=== PATIENT | female | born 1960 | race Caucasian/White ===

== ENCOUNTER 2017-07-13 09:45 | Emergency (ER) | payer OTHER ==
[~2017-07-13] VITALS: Ht 167.6 cm; Wt 77.1 kg
[~2017-07-13 09:45] MED LIST: ALBU18HF IH; CLOP75TA57 PO; METH-37 PO; TRAM-48 PO
[2017-07-13] MEDS ORDERED: IV NORMAL SALINE 1,000ML 1,000 ML IV ONE (10:30)
[2017-07-13] MEDS ORDERED: predniSONE 10 MG TABLET PO ONE (10:45)
[2017-07-13] MEDS ORDERED: ONDANSETRON PF 4 MG/2 ML VIAL. IV ONE (10:45)
[2017-07-13] MEDS ORDERED: IPRATRPIUM/ALBUTEROL 0.5/2.5MG 3 ML NEBU. NEB ONE (10:45)
[2017-07-13 10:47] LABS: BASO % 1 % (0-3); EOS # 0.1 x10^3/uL (0.0-0.7); EOS % 2 % (0-3); HEMATOCRIT 40.5 % (36.0-47.0); HEMOGLOBIN 13.7 g/dL (12.0-15.5); LYMPH # 1.3 x10^3/uL (1.0-4.8); LYMPH % 36 % (24-48); MEAN CORPUSCULAR HEMOGLOBIN 31 pg (25-35); MEAN CORPUSCULAR HGB CONC 34 g/dL (31-37); MEAN CORPUSCULAR VOLUME 92 fL (79-100); MONO # 0.3 x10^3/uL (0.0-1.1); MONO % 8 % (0-9); NEUT % 53 % (31-73); PLATELET COUNT 138 x10^3/uL (140-400); RED BLOOD COUNT 4.41 x10^6/uL (3.50-5.40); RED CELL DISTRIBUTION WIDTH 14.2 % (11.5-14.5); WHITE BLOOD COUNT 3.7 x10^3/uL (4.0-11.0)
--- NOTE | 2017-07-13 10:54 | RAD ---
Chest, 2 views, 07/13/2017: History: Cough Comparison is made to a study from 10/10/2014. The heart size and pulmonary vascularity are normal. No pulmonary infiltrate is seen. There is no evidence of pleural fluid. IMPRESSION: No acute cardiopulmonary abnormality is detected.
[2017-07-13 11:15] LABS: ALBUMIN 3.4 g/dL (3.4-5.0); CALCIUM 8.4 mg/dL (8.5-10.1); GFR 57.6; POTASSIUM 3.8 mmol/L (3.5-5.1); TOTAL BILIRUBIN 0.3 mg/dL (0.2-1.0); TOTAL PROTEIN 6.8 g/dL (6.4-8.2)
[2017-07-13] MEDS ORDERED: PRED50TA PO (12:20)
[2017-07-13] MEDS ORDERED: BENZ100C PO (12:20)
[2017-07-13] MEDS ORDERED: AZIT250T6 PO (12:20)
[2017-07-13] MEDS ORDERED: ALBU8.5H8 INH (12:20)
--- NOTE | 2017-07-13 12:20 | PHYS DOC ---
Past History Past Medical History: Asthma, [place] Past Surgical History: No Surgical History Alcohol Use: None Drug Use: None Adult General Chief Complaint Chief Complaint: SHORTNESS OF BREATH HPI HPI Patient is a 57 year old female who presents with cough and shortness of breath. Patient reports 10 day history of productive cough associated with shortness of breath at rest and with exertion. Denies fevers or chills, nasal congestion/rhinorrhea, chest pain, vomiting, diarrhea. History of asthma, current daily smoker. Review of Systems Review of Systems Constitutional: Denies fever or chills Eyes: Denies change in visual acuity HENT: Denies nasal congestion or sore throat Respiratory: Reports cough and shortness of breath Cardiovascular: Denies chest pain or edema GI: Denies abdominal pain, nausea, vomiting, bloody stools or diarrhea : Denies dysuria or hematuria Musculoskeletal: Denies back pain or joint pain Integument: Denies rash or skin lesions Neurologic: Denies headache, focal weakness or sensory changes All other systems were reviewed and found to be within normal limits, except as documented in this note. Current Medications Current Medications Current Medications Medications (Trade) Dose Ordered Sig/Jose De Jesus Start Time Stop Time Status Last Admin Dose Admin Albuterol/ Ipratropium (Duoneb) 3 ml 1X ONCE 07/13/17 10:45 07/13/17 10:46 DC 07/13/17 11:00 3 ML Ondansetron HCl (Zofran) 4 mg 1X ONCE 07/13/17 10:45 07/13/17 10:46 DC 07/13/17 10:59 4 MG Prednisone (Prednisone) 50 mg 1X ONCE 07/13/17 10:45 07/13/17 10:46 DC 07/13/17 11:00 50 MG Sodium Chloride 1,000 ml @ 1,000 mls/hr 1X ONCE 07/13/17 10:30 07/13/17 11:29 DC 07/13/17 10:59 1,000 MLS/HR Allergies Allergies Allergies Coded Allergies Type Severity Reaction Last Updated Verified No Known Drug Allergies 10/10/14 No Physical Exam Physical Exam Constitutional: Well developed, well nourished, no acute distress, non-toxic appearance. HENT: Normocephalic, atraumatic, bilateral external ears normal, oropharynx moist, no tonsillar enlargement or exudate nose normal. Eyes: conjunctiva normal, no discharge. Neck: supple, no stridor. No meningismus Cardiovascular: RRR, no murmurs, no edema. Lungs & Thorax: LCTAB, frequent dry cough, no wheezing, no respiratory distress. Abdomen: soft, nontender, nondistended. Skin: Warm, dry, no erythema, no rash. Back: No tenderness. Extremities: No tenderness, no edema. No calf tenderness or swelling Neurologic: Alert and oriented X 3, no focal deficits noted. Psychologic: Affect normal, judgement normal, mood normal. Current Patient Data Vital Signs Vital Signs Date Time Temp Pulse Resp B/P (MAP) Pulse Ox O2 Delivery O2 Flow Rate FiO2 07/13/17 10:08 98.4 66 22 98 Room Air Lab Results Laboratory Tests Test 07/13/17 10:35 White Blood Count 3.7 x10^3/uL (4.0-11.0) L Red Blood Count 4.41 x10^6/uL (3.50-5.40) Hemoglobin 13.7 g/dL (12.0-15.5) Hematocrit 40.5 % (36.0-47.0) Mean Corpuscular Volume 92 fL (79-100) Mean Corpuscular Hemoglobin 31 pg (25-35) Mean Corpuscular Hemoglobin Concent 34 g/dL (31-37) Red Cell Distribution Width 14.2 % (11.5-14.5) Platelet Count 138 x10^3/uL (140-400) L Neutrophils (%) (Auto) 53 % (31-73) Lymphocytes (%) (Auto) 36 % (24-48) Monocytes (%) (Auto) 8 % (0-9) Eosinophils (%) (Auto) 2 % (0-3) Basophils (%) (Auto) 1 % (0-3) Neutrophils # (Auto) 2.0 x10^3uL (1.8-7.7) Lymphocytes # (Auto) 1.3 x10^3/uL (1.0-4.8) Monocytes # (Auto) 0.3 x10^3/uL (0.0-1.1) Eosinophils # (Auto) 0.1 x10^3/uL (0.0-0.7) Basophils # (Auto) 0.0 x10^3/uL (0.0-0.2) Sodium Level 139 mmol/L (136-145) Potassium Level 3.8 mmol/L (3.5-5.1) Chloride Level 104 mmol/L (98-107) Carbon Dioxide Level 25 mmol/L (21-32) Anion Gap 10 (6-14) Blood Urea Nitrogen 15 mg/dL (7-20) Creatinine 1.0 mg/dL (0.6-1.0) Estimated GFR (Cockcroft-Gault) 57.6 BUN/Creatinine Ratio 15 (6-20) Glucose Level 90 mg/dL (70-99) Calcium Level 8.4 mg/dL (8.5-10.1) L Total Bilirubin 0.3 mg/dL (0.2-1.0) Aspartate Amino Transferase (AST) 20 U/L (15-37) Alanine Aminotransferase (ALT) 31 U/L (14-59) Alkaline Phosphatase 73 U/L (46-116) Troponin I Quantitative < 0.017 ng/mL (0-0.055) JQ-Dhn-U-Type Natriuretic Peptide 126 pg/mL (0-124) H Total Protein 6.8 g/dL (6.4-8.2) Albumin 3.4 g/dL (3.4-5.0) Albumin/Globulin Ratio 1.0 (1.0-1.7) EKG EKG Interpreted by me: Normal sinus rhythm rate 60, no acute ST or T wave changes, normal intervals, no ectopy[] Radiology/Procedures Radiology/Procedures PROCEDURE: CHEST PA & LATERAL Chest, 2 views, 07/13/2017: History: Cough Comparison is made to a study from 10/10/2014. The heart size and pulmonary vascularity are normal. No pulmonary infiltrate is seen. There is no evidence of pleural fluid. IMPRESSION: No acute cardiopulmonary abnormality is detected. DICTATED AND SIGNED BY: BALDO GHOSH MD DATE: 07/13/17 9148 [] Course & Med Decision Making Course & Med Decision Making Pertinent Labs and Imaging studies reviewed. (See chart for details) The patient presents with respiratory symptoms. Afebrile, normal oxygen saturation, stable vitals. Gave nebulized breathing treatment, prednisone. Obtained labs, EKG, chest x-ray. No infiltrate on chest x-ray, vitals stable. She felt better after treatment. Recommend supportive care with rest, hydration , Tylenol or ibuprofen for pain or fever, refill of pro-air inhaler to use when necessary for cough or wheezing, prednisone burst, azithromycin for acute bronchitis. Follow-up with primary care physician in 2-3 days if not improving. Return to the emergency department for high fever, severe pain, uncontrolled vomiting, severe shortness of breath, any otherwise worsening condition. [] Dragon Disclaimer Dragon Disclaimer This electronic medical record was generated, in whole or in part, using a voice recognition dictation system. Departure Departure: Impression: Primary Impression: Acute bronchitis Disposition: 01 HOME, SELF-CARE Condition: STABLE Referrals: DELMY PULIDO MD (PCP) Patient Instructions: Acute Bronchitis, [id number] Additional Instructions: You were seen in the emergency department today for cough. Your x-ray was negative for pneumonia. Your vitals were stable. Please rest, drink fluids to stay hydrated, take Tylenol or ibuprofen for pain or fever, use albuterol inhaler, take steroids and antibiotic. Follow-up with a primary care physician in 2-3 days if not improving. Return to the emergency department for high fever , severe shortness of breath or chest pain, uncontrolled vomiting, any otherwise worsening condition. Scripts Azithromycin (AZITHROMYCIN TABLET) 250 Mg Tablet 1 PKG PO UD, #6 TAB Prov: MANUELA PICKETT MD 07/13/17 Prednisone (PREDNISONE) 50 Mg Tablet 1 TAB PO DAILY, #5 TAB Prov: MANUELA PICKETT MD 07/13/17 Benzonatate (TESSALON PERLE) 100 Mg Capsule 1 CAP PO TID, #21 CAP Prov: MANUELA PICKETT MD 07/13/17 Albuterol Sulfate (PROAIR HFA INHALER) 8.5 Gm Hfa.aer.ad 1 PUFF INH PRN Q6HRS Y for SHORTNESS OF BREATH, #1 INHALER 0 Refills Prov: MANUELA PICKETT MD 07/13/17 MANUELA PICKETT MD Jul 13, 2017 12:20
[2017-07-13 12:30] VITALS: BP 124/62
--- NOTE | 2017-07-13 13:48 | EKG ---
[address] [address] Test Date: 2017-07-13 Test Time: 11:06:58 Pat Name: SHANTAL STEVENS Department: Room: Gender: F Clinic Lead: SOUMYA : 1960 Requested By: MANUELA PICKETT Order Number: [id number] Reading MD: Shaan Fry Measurements Intervals Sims Rate: 60 P: 57 VT: 122 QRS: 59 QRSD: 86 T: 33 QT: 408 QTc: 412 Interpretive Statements SINUS RHYTHM LEFT ATRIAL ABNORMALITY NONSPECIFIC ST-T WAVE CHANGES. ABNORMAL ECG RI6.01 Electronically Signed On 07-15-2017 10:11:43 HAND RUG BRAIDER by Shaan Fry
== END 2017-07-13 12:30 | disposition home or self-care (01) ==
LOC: ER 09:45
DX: J20.9 Acute bronchitis, unspecified (principal); J45.909 Unspecified asthma, uncomplicated; I25.2 Old myocardial infarction
CPT/HCPCS: 36415; 71046; 80053; 83880; 84484; 85025; 93005; 94640; 96361; 96374; 99285; J2405; J7512; J7620; J7030